=== PATIENT | male | born 1940 | race Caucasian/White ===

== ENCOUNTER 2019-11-04 03:14 | Inpatient (IN) | payer OTHER, BC ==
[~2019-11-04] VITALS: Ht 172.7 cm; Wt 117.5 kg
[2019-11-04] MEDS ORDERED: ROXICODONE5 MG PO (04:01)
[2019-11-04] MEDS ORDERED: PROTONIX40 M2 PO (04:03)
[2019-11-04] MEDS ORDERED: TAMSULOSIN HCL0.4 MG PO (04:05)
[2019-11-04] MEDS ORDERED: COUMADIN 5 MG TA5 M1 PO (04:06)
[2019-11-04] MEDS ORDERED: QUETIAPINE FUMA25 MG PO (04:07)
[2019-11-04] MEDS ORDERED: SULFACETAMIDE 115 M1 OPHTHALMIC (04:11)
[2019-11-04] MEDS ORDERED: TESTOSTERO200 MG/1 M IM (04:14)
[2019-11-04] MEDS ORDERED: NORVASC5 M1 PO (04:16)
[2019-11-04] MEDS ORDERED: ALL DAY ALLERGY10 M3 PO (04:17)
[2019-11-04] MEDS ORDERED: LOPRESSOR50 MG PO (04:20)
[2019-11-04] MEDS ORDERED: BENICAR40 MG PO (04:21)
[2019-11-04] MEDS ORDERED: LIPITOR 20 MG T20 M1 PO (04:22)
[2019-11-04] MEDS ORDERED: REMICADE 1100 MG/VIA IV (04:24)
[2019-11-04] MEDS ORDERED: CENTRUM SILVER1 EAC2 PO (04:26)
[2019-11-04 05:40] VITALS: BP 167/84
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
[2019-11-04 08:35] VITALS: BP 160/86
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
[2019-11-04 17:14] VITALS: BP 160/86
[2019-11-04 20:00] VITALS: BP 132/79
--- NOTE | 2019-11-04 21:34 | NUR ---
PT ALERT AND ORIENTED. PT WAS IN HIS BED AT TIME OF ASSESSMENT. PT WAS PLEASANT AND COOPERATIVE. PT AGREES TO TODAY. PT DENIES SI/HI/VH/. PAIN MED GIVEN FOR BACK PAIN. PT TOOK MEDS WHOLE. P T WOKE UP AT ABOUT 2130, WANTING TYLENOL PT INFORMED THAT HE ALREADY GOT TYLENOL. PT VOICED THAT HE TAKES 1500MG OF TYELNOL Q4. THIS WAS NOT ON PT'S MED LIST. PT SEEMED CONFUSED AND OFF TOPIC FOR A FEW MOMENT AT THIS TIME. PT WAS TAKLING ABOUT "300 CONTAINERS" AND MUMBLING WORDS. I ATTEMPTED GETTING MORE CLEARITY TO WHAT HE MEANT AND WHAT HE WAS TALKING ABOUT. NO SUCCESS. ORIENTEATION REASSESSED AT THIS TIME AND OT WAS A&O X4. PT BECAME COHERENT AND DECIDED TO GO BACK TO SLEEP. WILL CONTINUE TO MONITOR.
[2019-11-05 08:50] VITALS: BP 172/92
[2019-11-05 10:26] VITALS: BP 117/72
--- NOTE | 2019-11-05 13:20 | EKG ---
[facility] [place] [place] [address] ELECTROCARDIOGRAM REPORT Name: YUSRA COX Room #: [facility] ADM IN M.R.#: [id number] Admission: 11/04/19 Attend Phys: Jon Saavedra DO Discharge: Date of : 38 Report #: [id number] THIS REPORT FOR: cc: [facility] - Clinic physician unknown [facility] - Clinic physician unknown Ravi Matos MD [facility] THIS REPORT FOR: //name// [facility] Test Date: 2019-11-04 Test Time: 14:23:19 Pat Name: YUSRA COX Department: Room: [facility] Gender: M Boss Dyer: Heather SCHULTE : 1940 Requested By: Dimas Dejesus Order Number: [id number] MD: Ravi Matos Measurements Intervals [place] Rate: 81 P: AL: QRS: 29 QRSD: 94 T: 35 QT: 386 QTc: 448 Interpretive Statements Atrial fibrillation Ventricular premature complex Compared to ECG 04/23/2002 06:55:41 Ventricular premature complex(es) now present Sinus rhythm no longer present Electronically Signed On 11-05-2019 13:18:52 CDT by Ravi Matos [email or web address] <ELECTRONICALLY SIGNED> By: Ravi Matos MD, [facility] 11/05/19 1318 1423 1423 Ravi Matos MD, [facility] /EPI
[2019-11-05 13:34] LABS: ABSOLUTE NEUTROPHILS 4.5 thou/uL (1.4-8.2); BASOPHILS 1.1 % (0.0-2.0); EOSINOPHILS 1.9 % (0.0-3.0); HEMATOCRIT 49.1 % (42.0-52.0); LYMPHOCYTES 19.6 % (24.0-44.0); MCH 31.5 pg (26.0-34.0); MCHC 32.5 g/dL (28.0-37.0); MCV 96.7 fL (80.0-100.0); MONOCYTES 11.4 % (1.0-8.0); PLATELET COUNT 190 thou/uL (150-400); RBC 5.08 mil/uL (4.50-6.00); RDW 14.5 % (10.5-14.5); WBC 6.8 thou/uL (4.0-11.0)
[2019-11-05 13:44] LABS: INR 3.4; PROTIME 34.8 Seconds (9.3-11.4)
[2019-11-05 13:51] LABS: CALCIUM 9.2 mg/dL (8.5-10.1); CREATININE 1.6 mg/dL (0.7-1.3); POTASSIUM 4.3 mmol/L (3.5-5.1)
[2019-11-05 16:21] VITALS: BP 117/72
--- NOTE | 2019-11-05 16:28 | NUR ---
ASSUMED CARE AT 0700 TODAY. PT. IN HIS ROOM, OUT FOR GROUPS AND MEALS. HE TALKED ABOUT HOW HE WAS TIRED TODAY AND DID NOT SLEEP MUCH LAST NIGHT. STAFF RECORDED HE SLEPT 5.4 HOURS. HE GETS A BIT SNIPPY WITH STAFF AT TIMES BUT QUICKLY STOPS AND BECOMES CORDIAL. HE SAW DR. ALLRED TODAY. SHE ORDERED ULTRASOUND OF LEGS BILATERALLY. HE COOPERATED WITH THIS.
[2019-11-05 20:05] VITALS: BP 153/78
--- NOTE | 2019-11-06 00:24 | NUR ---
Pt alert and oriented x4. Pt can be forgetful as well. Asessment completed in pt's room. Pt was cooperative with assessment. Pt voiced some frustrations about not being able to have his tablet and phone in the room. Pt also voiced his dislike of not having a clock to check time in the room and that its "stupid" that he has to come out to nurses station to check the time. Pt voiced that he cannot wait to get o ut of here and move on with his life. Pt voiced that he likes to keep in touch with friends and have not been able to do so since being admitted. Pt informed that he can call friend using the general pt's phone and friends could also get a hold of him by calling the unit. Pt voiced his dislikes of the hospital's policies on this unit. No aggressivness noted. Pt complaint with meds. Took meds whole. Tylenol given for back pain. Pt declined HS snacks. Pt in bed and currently sleeping. Will continue to monitor.
[2019-11-06 06:30] LABS: INR 4.1
[2019-11-06 07:57] VITALS: BP 147/93
--- NOTE | 2019-11-06 08:57 | NUR ---
SW completed the chart review and pt has had hallucinations for about 8 months and seems to be requesting to d/c DANIA. Will monitor for a safe d/c,
--- NOTE | 2019-11-06 10:37 | NUR ---
0700 ASSUMED CARE OF PATIENT AT THIS TIME. PATIENT IN BED ASLEEP. OUT TO DAYROOM FOR BREAKFAST. PATIENT DOES ATTEND GROUP THIS AM.
--- NOTE | 2019-11-06 17:16 | NUR ---
PT C/O PAIN TO BACK OXYCODONE 2.5MG PO GIVEN. PATIENT UPSET STATES HE TAKES 20.5 MG PO OF OXYCODONE. DR VILLAREAL NOTIFIED, STUDIO MODEL VERIFIED WITH PT'S PHARMACY ([facility]). DR FUENTES HOSPITALIST NOTIFIED AND WILL SUBMIT ORDER.
--- NOTE | 2019-11-06 18:33 | NUR ---
PATIENT RESTING IN BED AT THIS TIME WITH EYES CLOSED. WILL REPORT TO ON COMING SHIFT REGARDING CHANGE IN OXYCODONE DOSE.
[2019-11-06 19:30] VITALS: BP 147/79
--- NOTE | 2019-11-07 04:26 | NUR ---
Assumed care of pt @ 1900. Pt calm et cooperative this shift. Took medications whole without difficulty. Continues to c/o severe back pain with minimal relief from pain meds. Isolates in room most of shift. Denies SI/HI @ present time. Ambulates the halls ad celine with slow et steady gait assisted by a walker. VSWNL. Health assessment with no abnormalities other than previously noted. Currently resting in bed with eyes closed. Will continue to monitor per protocol.
[2019-11-07 06:03] LABS: CALCIUM 8.6 mg/dL (8.5-10.1); CREATININE 1.4 mg/dL (0.7-1.3); MAGNESIUM 1.8 mg/dL (1.8-2.4); POTASSIUM 3.7 mmol/L (3.5-5.1)
[2019-11-07 06:05] LABS: HEMATOCRIT 48.6 % (42.0-52.0); MCH 31.7 pg (26.0-34.0); MCHC 32.9 g/dL (28.0-37.0); MCV 96.4 fL (80.0-100.0); RBC 5.04 mil/uL (4.50-6.00); RDW 14.6 % (10.5-14.5); WBC 8.1 thou/uL (4.0-11.0)
[2019-11-07 06:09] LABS: INR 3.3; PROTIME 34.4 Seconds (9.3-11.4)
[2019-11-07 09:09] VITALS: BP 124/85
--- NOTE | 2019-11-07 09:16 | NUR ---
Sw met with pt this AM. Pt is [place] but was able to discuss his mental health treatment. Pt sees Dr Doni Escalante PCP and goes to [facility] for mental health. He sees Dr Fior Garner psych, and Philippe Rondon for therapy. Pt is willing to f/u with these providers at d/c. Pt also reported that he recieves housekeeping, meals and activities in his [place] [address] in [facility]. Pt also provided his son Cornell's phone number [phone].
--- NOTE | 2019-11-07 10:43 | NUR ---
KALPANA called [facility] and correction- Dr Philippe Rondon is psych and KALPANA set and appt for 11/[address] Childress is the pt's therapist and KALPANA made an appt for 11/15 at 10 am. Kalpana will FAX d/c orders and summary [phone].
--- NOTE | 2019-11-07 11:26 | NUR ---
0715 Sitting on toilet this AM without s/o distress. Expressing frustration that his medication orders keep changing d/t his Doctors keep changing. Also states his back pain is a "12" or a 10/10. Began asking for pain medication at 0630 this am. Also comparing unit to "[place]". Also describing visual hallucination of seeing his computer but then it not being there when he went to touch it. When he stood up from toilet he stated he was dizzy, encouraged to sit down and increase fluids. States feeling passed. Stated he felt weak when getting up from bed after assessment. Brought to dining room in for breakfast. Breath sounds clear t/o, bilaterally equal. Irregular HR auscultated. Color pink with brisk capillary refill and palpable peripheral pulses. No edema noted. Describes urinary hesitantcy, yellow urine per toilet. Active bowel sounds over large, rounded, full abdomen. Cries out when abdomen palpated, no rebound tenderness. No s/o distress immediately after palpation. Abdominal hernia on R side. Calm and cooperative, compliant with meds. States pain decreased to a 5 from 10. Denies SI/HI. Dr. Wang here evaluating pt. States he will keep pain medication as it is through tomorrow and reassess on tomorrow unless pt. appears to be in significant pain. PT also here assessing pt.
--- NOTE | 2019-11-07 15:28 | NUR ---
JACQUELINE called masood Sarabia and left a VM concerning the d/c plans for tomorrow. JACQUELINE will assist with transportation.
--- NOTE | 2019-11-07 15:40 | NUR ---
KALPANA met with pt and discussed d/c plans. Pt agreed to go to his Appts at [facility] next week. Kalpana reported that she had called son t provide d/c plans. Kalpana then confirmed this with Dr Saavedra and then set up transportation with [employer] at 11 am as pt did not have alternate transportation. Pt has a car and still drives to get ot his appts. Kalpana reported d/c time to nursing staff and Dr saavedra. KALPANA created and provided pt with hadnout that included address and phone number t [facility] and the appt date and times. This will be included in the d/c packet.
[2019-11-07 19:47] VITALS: BP 102/39
[2019-11-07 21:33] VITALS: BP 102/39
--- NOTE | 2019-11-08 | NUR ---
Assumed care of patient at change of shift. At beginning of shift patient was at nurses' station repeatedly asking for assistance using the unit portable patient phone. Pt. was given education on use of phone and he made several attempts but was unable to reach son. He voiced his displeasure at being unable to have his portable phone with him at all times. Pt. returned to his room and his assessment was completed. Pt.'s affect was flat and he was angry that the lights in his room had been turned on. Pt. complained of pain of 5/10 to his lower back that he described as aching and shooting. Pt. had previously been ambulating with a walker and had a slow and steady gait. No whincing or other signs or symptoms of pain noted while patient was ambulating. Meds were completed at approximately 2030 and pt was educated regarding the difference of IR Oxycodone and ER Oxycontin. When asked again about his pain he reported that "overall" it was better. Pt. took meds whole with thin liquids. No choking or coughing noted after patient swallowed medications. No signs or symptoms of distress noted. Pt. acknowledges his dismissal for tomorrow per van transportation. He also denies any SI/HI/VH. He does complain of occasional auditory hallucinations and denies answering them. Pt. was encouraged to let familyl or "someone else" know about any halluciations he has post discharge. .
[2019-11-08 07:43] VITALS: BP 102/39
[2019-11-08 08:25] VITALS: BP 125/65
--- NOTE | 2019-11-08 08:46 | NUR ---
SW made packet and included follow up appt for [facility]. Pt has [facility] starting tomorrow. Referral was sent to [phone] for HH and [phone] for [facility]. FAX confimration with packet were left on chart. Transportation set up for 11 am. Reported to nursing.
--- NOTE | 2019-11-08 08:58 | NUR ---
Sw called and spoke with pt's son Cornell and provided d/c instructions and recomendations. Griffin seemed satisfied with the outcome.
[2019-11-08] MEDS ORDERED: SENNA-TIME S T1 EACH PO (09:17)
[2019-11-08] MEDS ORDERED: SEROQUEL XR 20200 MG PO (09:18)
[2019-11-08] MEDS ORDERED: CARDIZEM CD120 MG PO (09:20)
[2019-11-08] MEDS ORDERED: XARELTO10 M1 PO (09:29)
--- NOTE | 2019-11-08 09:40 | NUR ---
0700 ASSUMED CARE OF PATIENT. PATIENT IN BED WITH EYES CLOSED AT THAT TIME. 0750 PATIENT SITTING ON SIDE OF BED RATES PAIN 7-8 TO LOWER BACK. STATES "IM GOING HOME OR BACK TO [facility] WHERE I CAME FROM". PATIENTS GOAL IS TO GET HOME AND CONCERN IS THAT HE NEVER BE ALONE AGAIN. PATIENT STATES "IM GLAD I AM LIVING AT [facility] SO I AM NOT ALONE". PATIENT DENIES SI/HI/AH/VH. PATIENT OUT TO DAYROOM FOR BREAKFAST. PATIENT IS CALM AND COOPERATIVE SMILES AT TIMES. PATIENT DOES STATE HAS SOME ANXIETY AND IS WORKING TO DECREASE HIS ANXIETY.
--- NOTE | 2019-11-08 11:40 | NUR ---
1030 SLOT SHIFT SUPERVISOR GAVE PATIENT DISCHARGE INSTRUCTIONS. PATIENT VAICED UNDERSTANDING. PATIENT REFUSED TO FILL OUT SURVEY. 1115 PATIENT DISCHARGED PER WC WITH TRANSPORT AGENCY. NURSE QUANTOMETER OPERATOR ACCOMPANIED PATIENT TO TRANSPORT VAN. BELONGING WITH PATIENT WELL FOLDER WITH INSTRUCTIONS, RX AND OTHER FORMS.
--- NOTE | 2019-11-09 21:35 | D ---
[facility] [place] [address] DISCHARGE SUMMARY Name: YUSRA COX Room #: 523B-B DIS IN M.R.#: [id number] Admission: 11/04/19 Attend Phys: Jon Saavedra DO Discharge: 11/08/19 Date of : 38 Report #: [id number] THIS REPORT FOR: cc: [facility] - Clinic physician unknown [facility] - Clinic physician unknown Jon Saavedra DO ~ THIS REPORT FOR: //name// CC: Jon Saavedra [facility] unknown DATE OF SERVICE: 11/08/2019 PSYCHIATRIC DISCHARGE SUMMARY ATTENDING PHYSICIAN: Jon Saavedra DO. INK PRINTER: Jorge Wang M.D. DISCHARGE DIAGNOSIS: Schizophrenia, very late onset type. Medical comorbidities are multiple and include bilateral lower extremity edema, history of DVT, status post negative venous ultrasound of the lower extremities, atrial fibrillation, has a history of cardioversion, on beta dinesh and oral anticoagulant, supratherapeutic INR, where he underwent therapeutic change on this admission from warfarin to it being held and now being started on rivaroxaban, which is Eliquis; coronary artery disease, acute renal failure along with CKD stage 2, BPH, chronic pain from RA, on Remicade infusions. DISCHARGE PLAN: Discharging to his home in [place]. He lives in an independent [facility] apartment. DISCHARGE MEDICATIONS: Are as follows: Diltiazem 120 mg p.o. daily that is Cardizem CD 24 hour for AFib with Seroquel 400 mg p.o. at bedtime extended release for his psychosis, senna docusate 2 tabs p.o. b.i.d. for bowel motility. Rivaroxaban, Xarelto, he should take 15 mg p.o. daily, put 10 mg p.o. daily in [facility], but the hospitalist wanted the higher dose. Protonix 40 mg p.o. daily in a.m. for GERD, tamsulosin 0.4 mg p.o. daily. He had some q. 4 weekly testosterone 200 mg injections, amlodipine besylate 5 mg p.o. daily for hypertension, cetirizine; Zyrtec 10 mg p.o. daily, takes at home for allergic rhinitis; metoprolol tartrate 100 mg p.o. b.i.d., he takes at home for AFib and hypertension; olmesartan 40 mg p.o. daily with dinner for hypertension, atorvastatin 20 mg p.o. daily with dinner. Again, the infliximab which is Remicade infusions 100 mg IV q. 8 weeks and multivitamin p.o. daily. Also, he takes 20 mg p.o. b.i.d. of oxycodone at home, had him on a lower dose, but the hospital increased it to 20 mg strength later in admission for arthritic pain. [address] [address] DISCHARGE SUMMARY Name: YUSRA COX Room #: 523B-B DIS IN M.R.#: [id number] Admission: 11/04/19 Attend Phys: Jon Saavedra DO Discharge: 11/08/19 Date of : 38 Report #: [id number] LABORATORY DATA: This admission are as follows: CBC within normal limits. Most recent INR on 11/06 of 3.3. Chemistries last done on November 06, sodium 144, potassium 3.7, chloride 106, bicarbonate 29, anion gap 9, BUN 12, creatinine 1.4, estimated GFR 49, glucose 90, calcium 8.6, magnesium 1.8. Otherwise, the patient has a high BMI of 39.4, so his estimated GFR is probably understated unadjusted for his weight. REASON FOR ADMISSION: Back on or so october, the patient was sent from [facility] secondary to auditory hallucinations. He had been hearing voices for 8 months. They had been intensifying, feeling more desperate. He presented to the Emergency Room there. HOSPITAL COURSE: The patient was admitted to the Geriatric Psychiatry Unit. He had a high SLUMS score and there was not any clear evidence of a dementing process, which was good on the one hand. On the opposite hand, though rare, it is not unheard of to have very late onset schizophrenia in ones 60s, 70s as he was technically 78 when he had onset of this. Anyways, we were able to snuff out his voices he was hearing with Seroquel XR. Unfortunately, it is one of the more adverse metabolic antipsychotics. The patient was counseled on this, the need for monitoring laboratories, diet and exercise. The patient was screened for other risk factors. He is bisexual, but he has always used a condom and elected not to screen for HIV or hepatitis. Again, there was no clinical evidence otherwise to do so than his sexual behavior history. On the day of discharge, the patient was not suicidal or homicidal, felt to be ready for discharge. PHYSICAL EXAMINATION: VITAL SIGNS: At discharge, pulse 78, BP 125/65. GENERAL: Ambulates with walker. MENTAL STATUS EXAMINATION: This is a well-developed, obese male, appearing stated age. Attention limited. Concentration limited. Speech is normal rate. Thought process linear and goal oriented. Thought content focused on returning to his home, ameliorating his difficulties. No psychomotor agitation. No psychomotor retardation. Denied SI or HI. Denied hopelessness, helplessness. Memory well preserved but not formally tested today. Insight fair. Judgment fair. Fund of knowledge above average. PROGNOSIS: For the patient is fair and will depend on risk factor modification as well as on psychiatric compliance and followup. <ELECTRONICALLY SIGNED> By: Jon Saavedra DO 11/09/19 2135 2312 0041 Jon Saavedra, /nt
== END 2019-11-08 11:15 | disposition home or self-care (01) | DRG 885 ==
LOC: SBH
PROVIDERS: Hospitalist; Internal Medicine; ADMIT Psychiatry & Neurology Psychiatry
DX: F20.9 Schizophrenia, unspecified (principal); N17.9 Acute kidney failure, unspecified; D68.9 Coagulation defect, unspecified; I48.20 Chronic atrial fibrillation, unspecified; I25.10 Atherosclerotic heart disease of native coronary artery without angina pectoris; N18.2 Chronic kidney disease, stage 2 (mild); K21.9 Gastro-esophageal reflux disease without esophagitis; N40.0 Benign prostatic hyperplasia without lower urinary tract symptoms; Z96.659 Presence of unspecified artificial knee joint; R60.0 Localized edema; G47.00 Insomnia, unspecified; F32.9 Major depressive disorder, single episode, unspecified; M19.90 Unspecified osteoarthritis, unspecified site; I87.8 Other specified disorders of veins; M54.9 Dorsalgia, unspecified; M06.9 Rheumatoid arthritis, unspecified; Z88.0 Allergy status to penicillin; Z88.8 Allergy status to other drugs, medicaments and biological substances; Z91.040 Latex allergy status; Z90.49 Acquired absence of other specified parts of digestive tract; Z72.89 Other problems related to lifestyle; Z79.01 Long term (current) use of anticoagulants; Z86.718 Personal history of other venous thrombosis and embolism; Z80.6 Family history of leukemia; Z82.49 Family history of ischemic heart disease and other diseases of the circulatory system; Z87.891 Personal history of nicotine dependence; Z86.711 Personal history of pulmonary embolism
CPT/HCPCS: 10880